=== PATIENT | female | born 1930 ===

== ENCOUNTER 2020-07-16 10:30 | Inpatient (IN) | payer OTHER ==
[~2020-07-16] VITALS: Ht 167.6 cm; Wt 83.9 kg
[2020-07-16] MEDS ORDERED: VALSARTAN-HCTZ1 EAC4 PO (13:10)
[2020-07-16] MEDS ORDERED: FORTAMET1000 MG PO (13:10)
[2020-07-16] MEDS ORDERED: VERELAN240 MG PO (13:10)
[2020-07-16] MEDS ORDERED: ENALAPRIL MALEAT5 MG PO (13:11)
[2020-07-16] MEDS ORDERED: SIMVASTATIN10 MG PO (13:12)
[2020-07-16] MEDS ORDERED: GLIMEPIRIDE4 M1 PO (13:13)
[2020-07-16] MEDS ORDERED: DOXAZOSIN MESYLA2 MG PO (13:13)
[2020-07-16] MEDS ORDERED: VITAMIN B12 PO (13:14)
[2020-07-16] MEDS ORDERED: PROTECT PLUS S1 EACH PO (13:15)
[2020-07-20] MEDS ORDERED: VITAMIN B122500 MCG PO (10:46)
[2020-07-23] MEDS ORDERED: BACTRIM DS TAB1 EACH PO (07:46)
[2020-07-23] MEDS ORDERED: INTEGRA PLUS C1 EACH PO (07:46)
[2020-07-23] MEDS ORDERED: OXYC1TAB9 PO (07:46)
[2020-07-23] MEDS ORDERED: XARELTO10 MG PO (07:46)
== END 2020-07-23 23:12 | DRG 470 ==
LOC: O/R 07-20 06:00 → SURG 07-20 06:00 → O/R 07-20 07:00 → SURG 07-20 11:18
PROVIDERS: ADMIT Orthopaedic Surgery Sports Medicine; ATTEND Orthopaedic Surgery Sports Medicine
PROC: 0SRD0J9 Replacement of Left Knee Joint with Synthetic Substitute, Cemented, Open Approach (ICD-10-PCS; principal; 2020-07-20 07:00)
PROC: 30233N1 Transfusion of Nonautologous Red Blood Cells into Peripheral Vein, Percutaneous Approach (ICD-10-PCS; 2020-07-22)
DX: M17.12 Unilateral primary osteoarthritis, left knee (principal); I10 Essential (primary) hypertension; E11.9 Type 2 diabetes mellitus without complications; Z79.4 Long term (current) use of insulin; Z20.822 Contact with and (suspected) exposure to COVID-19